=== PATIENT | female | born 1965 | race Caucasian/White ===

== ENCOUNTER 2017-12-12 22:59 | Emergency (ER) | payer OTHER ==
[2017-12-13 01:03] LABS: Urine Blood 1+ (NEG); Urine Glucose NEGATIVE (NEG); Urine Protein 1+ (NEG); Urine Specific Gravity 1.015 (1.005-1.030)
--- NOTE | 2017-12-13 01:31 | ER ---
Nurse's Notes [facility] Name: Fartun Pena Age: 52 yrs Sex: Female : 1965 Arrival Date: 12/12/2017 Time: 23:01 Bed 8 Private MD: Diagnosis: Constipation;Urinary tract infection, site not specified Presentation: 12/12 23:06 Presenting complaint: EMS states: SHE'S BEEN KIND OF CONSTIPATED FOR TWO WEEKS. AND SHE rv SAYS THAT SHE GOT BLACK MOLD POISONING WELL NUMEROUS FLEA AND MOSQUITO BITES. 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 Transition of care: patient was not received from another setting of care. Onset of symptoms is unknown. Risk Assessment: Do you want to hurt yourself or someone else? Patient reports no desire to harm self or others. Initial Sepsis Screen: Does the patient meet any 2 criteria? No. Patient's initial sepsis screen is negative. Does the patient have a suspected source of infection? No. Patient's initial sepsis screen is negative. Care prior to arrival: None. 23:06 Method Of Arrival: EMS: [facility] rv 23:06 Acuity: [place] 3 rv Historical: - Allergies: 23:06 Morphine; rv - Home Meds: 23:22 steroid [Active]; inhaler [Active]; rv - PMHx: 23:06 COPD; Depression; Hyperlipidemia; Hypertension; PTSD; Seizures; rv - PSHx: 23:22 right foot surgery; rv 23:23 reconstructed left foot; rv - Immunization history:: Adult Immunizations up to date. - Social history:: Smoking status: Patient uses tobacco products, unknown amount Patient/guardian denies using alcohol, street drugs. - Ebola Screening: : Patient negative for fever greater than or equal to 101.5 degrees Fahrenheit, and additional compatible Ebola Virus Disease symptoms Patient denies exposure to infectious person Patient denies travel to an Ebola-affected area in the 21 days before illness onset. Screenin:20 Abuse screen: Denies threats or abuse. Denies injuries from another. Nutritional rv screening: No deficits noted. Tuberculosis screening: No symptoms or risk factors identified. Fall Risk None identified. Assessment: 23:17 General: Appears in no apparent distress. uncomfortable, Behavior is anxious, crying, rv restless. Pain: Complains of pain in right foot and left foot. Neuro: Level of Consciousness is awake, alert, obeys commands, Oriented to person, place, time, situation. Cardiovascular: Heart tones S1 S2 present. Respiratory: Airway is patent. GI: Bowel sounds present X 4 quads. Abd is soft and non tender. : No signs and/or symptoms were reported regarding the genitourinary system. EENT: No signs and/or symptoms were reported regarding the EENT system. Derm: Skin is intact. 12/13 00:03 Reassessment: Patient appears in no apparent distress at this time. Patient and/or rv family updated on plan of care and expected duration. Pain level reassessed. Patient is alert, oriented x 3, equal unlabored respirations, skin warm/dry/pink. 02:02 Reassessment: Patient crying on discharge instructions, stating " I'm still in pain"; lp1 Provider notified. Vital Signs: 12/12 23:19 BP 102 / 77; Pulse 115; Resp 16; Pulse Ox 96% on R/A; rv 0702 00:03 BP 124 / 91; Pulse 111; Resp 16; Pulse Ox 97% on R/A; rv 01:17 BP 133 / 82; Pulse 100; Resp 16; Pulse Ox 100% on R/A; mt ED Course: 12/12 23:01 Patient arrived in ED. rv 23:08 Triage completed. rv 23:19 Gilmar Block PA is PHCP. jr8 23:19 Brett Reeder MD is Attending Physician. jr8 23:20 Arm band placed on right wrist. rv 23:23 Patient has correct armband on for positive identification. Placed in gown. Bed in low rv position. Call light in reach. Side rails up X 1. Pulse ox on. NIBP on. 12/13 00:27 Patient moved to radiology via wheelchair. kw 00:27 X-ray completed. Patient tolerated procedure well. kw 00:27 Patient moved back from radiology. kw 00:28 XRAY KUB In Process Unspecified. EDMS 01:26 Bertha Pandey, RN is Primary Nurse. lp1 02:01 No provider procedures requiring assistance completed. Patient did not have IV access lp1 during this emergency room visit. Administered Medications: 02:01 Drug: Nitrofurantoin 100 mg Route: PO; lp1 02:01 Follow up: Response: Medication administered at discharge. lp1 02:01 Drug: TORadol 60 mg Route: IM; Site: right deltoid; lp1 02:01 Follow up: Response: Medication administered at discharge. lp1 Outcome: 01:30 Discharge ordered by . tamara 02:02 Discharged to home ambulatory. lp1 02:02 Condition: good 02:02 Discharge instructions given to patient, Instructed on discharge instructions, follow up and referral plans. medication usage, Demonstrated understanding of instructions, follow-up care, medications, Prescriptions given X 2. 02:03 Patient left the ED. lp1 Addendum: 12/16/2017 17:21 Addendum: Culture Results: Positive urine culture. No further action required. Bacteria s s sensitive to prescribed antibiotic. Signatures: Dispatcher [employer] EDMS Clare Pham RN RN ss Whitley, Kimberlee kw Pena, Laura, RN RN lp1 Gilmar Block PA PA jr8 Thompson, Moriah mt Vicente, Ronaldo RN RN rv
--- NOTE | 2017-12-13 01:31 | EDPHYS ---
Physician Documentation [facility] Name: Fartun Pena Age: 52 yrs Sex: Female : 1965 Arrival Date: 12/12/2017 Time: 23:01 Bed 8 Private MD: ED Physician Brett Reeder HPI: 12/13 00:43 This 52 yrs old Female presents to ER via EMS with complaints of Constipation jr8 and dysuria. 00:43 Patient stated that she feels as if she has to have a bowel movement but cannot. Stated jr8 that she also has pain with urination. Patient goes on to say that she has auto immune disease and fleas that attack her. Stated that she has lesion that she can only see . Severity of symptoms: At their worst the symptoms were mild in the emergency department the symptoms are unchanged. It is unknown whether or not the patient has had similar symptoms in the past. It is unknown whether or not the patient has recently seen a physician. Historical: - Allergies: 12/12 23:06 Morphine; rv - Home Meds: 23:22 steroid [Active]; inhaler [Active]; rv - PMHx: 23:06 COPD; Depression; Hyperlipidemia; Hypertension; PTSD; Seizures; rv - PSHx: 23:22 right foot surgery; rv 23:23 reconstructed left foot; rv - Immunization history:: Adult Immunizations up to date. - Social history:: Smoking status: Patient uses tobacco products, unknown amount Patient/guardian denies using alcohol, street drugs. - Ebola Screening: : Patient negative for fever greater than or equal to 101.5 degrees Fahrenheit, and additional compatible Ebola Virus Disease symptoms Patient denies exposure to infectious person Patient denies travel to an Ebola-affected area in the 21 days before illness onset. ROS: 12/13 00:43 Eyes: Negative for injury, pain, redness, and discharge, ENT: Negative for injury, jr8 pain, and discharge, Neck: Negative for injury, pain, and swelling, Cardiovascular: Negative for chest pain, palpitations, and edema, Respiratory: Negative for shortness of breath, cough, wheezing, and pleuritic chest pain, Back: Negative for injury and pain, MS/Extremity: Negative for injury and deformity, Skin: Negative for injury, rash, and discoloration, Neuro: Negative for headache, weakness, numbness, tingling, and seizure. Abdomen/GI: Positive for constipation, Negative for abdominal pain, nausea, vomiting, and diarrhea, abdominal distension, anorexia, dysphagia, hematemesis, black/tarry stool, rectal pain, rectal bleeding, bowel incontinence, flatulence. : Positive for urinary symptoms, Negative for pelvic pain, flank pain, vaginal bleeding, vaginal discharge, vaginal itching. Exam: 00:43 Eyes: Pupils equal round and reactive to light, extra-ocular motions intact. Lids and jr8 lashes normal. Conjunctiva and sclera are non-icteric and not injected. Cornea within normal limits. Periorbital areas with no swelling, redness, or edema. ENT: Nares patent. No nasal discharge, no septal abnormalities noted. Tympanic membranes are normal and external auditory canals are clear. Oropharynx with no redness, swelling, or masses, exudates, or evidence of obstruction, uvula midline. Mucous membranes moist. Neck: Trachea midline, no thyromegaly or masses palpated, and no cervical lymphadenopathy. Supple, full range of motion without nuchal rigidity, or vertebral point tenderness. No Meningismus. Cardiovascular: Regular rate and rhythm with a normal S1 and S2. No gallops, murmurs, or rubs. Normal PMI, no JVD. No pulse deficits. Respiratory: Lungs have equal breath sounds bilaterally, clear to auscultation and percussion. No rales, rhonchi or wheezes noted. No increased work of breathing, no retractions or nasal flaring. Abdomen/GI: Soft, non-tender, with normal bowel sounds. No distension or tympany. No guarding or rebound. No evidence of tenderness throughout. Back: No spinal tenderness. No costovertebral tenderness. Full range of motion. Skin: Warm, dry with normal turgor. Normal color with no rashes, no lesions, and no evidence of cellulitis. MS/ Extremity: Pulses equal, no cyanosis. Neurovascular intact. Full, normal range of motion. Neuro: Awake and alert, GCS 15, oriented to person, place, time, and situation. Cranial nerves II-XII grossly intact. Motor strength 5/5 in all extremities. Sensory grossly intact. Cerebellar exam normal. Normal gait. 00:43 Constitutional: The patient appears alert, awake, anxious, restless. Vital Signs: 12/12 23:19 BP 102 / 77; Pulse 115; Resp 16; Pulse Ox 96% on R/A; rv 12/13 00:03 BP 124 / 91; Pulse 111; Resp 16; Pulse Ox 97% on R/A; rv 01:17 BP 133 / 82; Pulse 100; Resp 16; Pulse Ox 100% on R/A; mt MDM: 12/12 23:19 Patient medically screened. [facility] 12/13 01:29 Data reviewed: vital signs, nurses notes, lab test result(s), radiologic studies, plain jr films, and as a result, I will discharge patient. Data interpreted: Pulse oximetry: on room air is 100 %. Interpretation: normal. Counseling: I had a detailed discussion with the patient and/or guardian regarding: the historical points, exam findings, and any diagnostic results supporting the discharge/admit diagnosis, lab results, radiology results, the need for outpatient follow up, a family practitioner, to return to the emergency department if symptoms worsen or persist or if there are any questions or concerns that arise at home. 12/13 00:52 Order name: Urine Dipstick--Ancillary (enter results); Complete Time: 01:26 12/13 00:52 Order name: Urine --Ancillary (enter results); Complete Time: 01:26 12/13 00:08 Order name: XRAY KUB [facility] 12/13 01:26 Order name: Urine Microscopic Only [facility] 12/13 01:27 Order name: Urine Microscopic Only; Complete Time: 01:54 [facility] 12/13 01:50 Order name: Urine Culture [facility] 12/13 00:08 Order name: Urine Dipstick-Ancillary (obtain specimen); Complete Time: 00:52 [facility] Administered Medications: 02:01 Drug: Nitrofurantoin 100 mg Route: PO; lp1 02:01 Follow up: Response: Medication administered at discharge. lp1 02:01 Drug: TORadol 60 mg Route: IM; Site: right deltoid; lp1 02:01 Follow up: Response: Medication administered at discharge. lp1 Disposition: 08:50 Co-signature as Attending Physician, Brett Reeder MD I agree with the assessment and ebony plan of care. Disposition: 12/13/17 01:30 Discharged to Home. Impression: Constipation, Urinary tract infection, site not specified. - Condition is Stable. - Discharge Instructions: Constipation, Adult, Urinary Tract Infection. - Prescriptions for Macrobid 100 mg Oral Capsule - take 1 capsule by ORAL route every 12 hours for 7 days; 14 capsule. Miralax 17 gram/dose Oral - take 1 packet by ORAL route once daily dilute powder in 8 ounces of water or juice; 1 box. - Medication Reconciliation Form, Thank You Letter, Antibiotic Education, Prescription Opioid Use form. - Follow up: Private Physician; When: 2 - 3 days; Reason: Recheck today's complaints, Continuance of care, Re-evaluation by your physician. - Problem is new. - Symptoms have improved. Signatures: Dispatcher [employer] EDMS Brett Reeder MD MD cha Pena, Laura, RN RN lp1 Gilmar Block PA PA jr8 Trevon Ochoa, RN RN rv Corrections: (The following items were deleted from the chart) 02:03 01:30 12/13/2017 01:30 Discharged to Home. Impression: Constipation; Urinary tract lp1 infection, site not specified. Condition is Stable. Forms are Medication Reconciliation Form, Thank You Letter, Antibiotic Education, Prescription Opioid Use. Follow up: Private Physician; When: 2 - 3 days; Reason: Recheck today's complaints, Continuance of care, Re-evaluation by your physician. Problem is new. Symptoms have improved. jr8
[2017-12-13 01:49] LABS: Urine Bacteria LOADED /HPF (<20); Urine Culture Reflex Order REFLEXED
[2017-12-13] MEDS ORDERED: KETOROLAC 30 MG/ML INJ ONE (01:53)
[2017-12-13] MEDS ORDERED: NITROFURAN MACRO 100 MG CAP PO ONE (01:53)
[2017-12-13 02:09] VITALS: BP 133/82; O2SAT 100
--- NOTE | 2017-12-13 07:07 | RAD REPORT ---
EXAM DESCRIPTION: RAD - Abdomen 1 View (KUB) - 12/13/2017 12:29 am CLINICAL HISTORY: Abdominal pain, constipation COMPARISON: None. FINDINGS: Large stool volume is present filling but not dilating the entirety of the colon. No obstr uction, free air or pneumatosis. No suspicious calcifications. Mild bony degenerative change. IMPRESSION: Constipation pattern with no bowel obstruction, free air or emergent finding.
== END 2017-12-13 02:03 | disposition home or self-care (01) ==
LOC: ER 22:59
DX: N39.0 Urinary tract infection, site not specified (principal); K59.00 Constipation, unspecified; I10 Essential (primary) hypertension; J44.9 Chronic obstructive pulmonary disease, unspecified; F43.10 Post-traumatic stress disorder, unspecified; Z88.5 Allergy status to narcotic agent
CPT/HCPCS: 74018; 81003; 81015; 81025; 87077; 87086; 87088; 87186; 96372; 99284

== ENCOUNTER 2019-02-03 06:05 | Emergency (ER) | payer OTHER ==
--- OUTSIDE RECORDS SUMMARY | 2019-02-03 06:07 | XMS REPORT ---
:1965 [facility] Address [address] [place] [address] [address]. [address] [place] [id number] Care Team Providers Name Role Phone Unavailable Unavailable Unavailable Problems This patient has no known problems. Allergies, Adverse Reactions, Alerts This patient has no known allergies or adverse reactions. Medications This patient has no known medications.
[2019-02-03] MEDS ORDERED: ONDANSETRON 4 MG/2 ML VIAL ONE (06:32)
[2019-02-03] MEDS ORDERED: MORPHINE 4 MG/ML SYR ONE (06:32)
[2019-02-03 07:25] LABS: ALT/SGPT 29 U/L (12-78); AST/SGOT 31 U/L (15-37); Albumin 3.5 g/dL (3.4-5.0); Alkaline Phosphatase 71 U/L (45-117); BUN Blood Urea Nitrogen 18 mg/dL (7-18); Bicarbonate 24 mmol/L (21-32); Bilirubin Direct 0.1 mg/dL (0-0.2); Bilirubin Total 0.4 mg/dL (0.2-1.0); Glucose Level 104 mg/dL (74-106); Lipase 128 U/L (73-393); Potassium 3.7 mmol/L (3.5-5.1); Protein, Total 6.7 g/dL (6.4-8.2); Sodium Level 139 mmol/L (136-145)
[2019-02-03 07:39] LABS: Absolute Lymphocytes (CBC) 2.1 K/uL (0.7-4.9); Basophils % 0.5 % (0-1.3); Hematocrit 40.7 % (36.0-45.0); Lymphocytes % 39.1 % (15.3-44.8); MPV 7.7 fL (7.6-11.3); RBC Red Blood Cell Count 4.21 M/uL (3.86-4.86)
[2019-02-03 07:40] LABS: Protime INR 0.82
--- NOTE | 2019-02-03 08:07 | RAD REPORT ---
EXAM DESCRIPTION: CT - Abdomen Pelvis W Contrast - 02/03/2019 7:42 am CLINICAL HISTORY: Abdominal pain with diarrhea COMPARISON: February 2018 TECHNIQUE: Computed axial tomography of the abdomen pelvis was obtained. 100 cc Isovue-300 was admin istered intravenously. Oral contrast was not requested which limits evaluation of bowel. All CT scans are performed using dose optimization technique as appropriate and may include automated exposure control or mA/KV adjustment according to patient size. FINDINGS: The liver, spleen, pancreas, adrenal and kidneys appear unremarkable. There is no evidence of diverticulitis. Normal appendix. IMPRESSION: No acute abnormality is displayed.
[2019-02-03] MEDS ORDERED: metroNIDAZOLE 500 MG TABLET ONE (08:29)
[2019-02-03] MEDS ORDERED: CIPROFLOXACIN HCL 500 MG TAB ONE (08:30)
[2019-02-03] MEDS ORDERED: DICYCLOMINE HCL 10 MG CAP ONE (08:30)
--- NOTE | 2019-02-03 08:31 | EDPHYS ---
Physician Documentation [facility] Name: Fartun Pena Age: 54 yrs Sex: Female : 1965 Arrival Date: 02/03/2019 Time: 06:06 Bed 6 Private MD: ED Physician Waqar Sanz HPI: 02/03 06:23 This 54 yrs old Female presents to ER via Ambulatory with complaints of pm1 Rectal Bleeding. 06:23 The patient presents to the emergency department with bleeding from the rectum/anus. pm1 Onset: The symptoms/episode began/occurred 4 month(s) ago. Context: the patient has no known special context relating to the rectal area complaint(s). Modifying factors: The symptoms are alleviated by nothing, The symptoms are aggravated by nothing. Associate signs and symptoms: Pertinent positives: abdominal pain in the abdomen diffusely, mucous bowel movement with some blood, Pertinent negatives: fever, vomiting. The patient has not experienced similar symptoms in the past. Historical: - Allergies: 06:27 Morphine; tr5 - Home Meds: 06:27 inhaler [Active]; gabapentin oral oral [Active]; Hydroxyzine Oral [Active]; tr5 - PMHx: 06:27 COPD; Depression; Hyperlipidemia; Hypertension; PTSD; Seizures; tr5 - PSHx: 06:27 None; tr5 - Immunization history:: Adult Immunizations up to date. - Social history:: Smoking status: Patient uses tobacco products, smokes one pack cigarettes per day. - Ebola Screening: : No symptoms or risks identified at this time. ROS: 06:23 Constitutional: Negative for fever, chills, and weight loss, Eyes: Negative for injury, pm1 pain, redness, and discharge, ENT: Negative for injury, pain, and discharge, Neck: Negative for injury, pain, and swelling, Cardiovascular: Negative for chest pain, palpitations, and edema, Respiratory: Negative for shortness of breath, cough, wheezing, and pleuritic chest pain. 06:23 Back: Negative for injury and pain, : Negative for injury, bleeding, discharge, and swelling, MS/Extremity: Negative for injury and deformity, Skin: Negative for injury, rash, and discoloration, Neuro: Negative for headache, weakness, numbness, tingling, and seizure. 06:23 Abdomen/GI: Positive for abdominal pain, abdominal distension, rectal bleeding, Negative for nausea, vomiting, and diarrhea. Exam: 06:23 Constitutional: This is a well developed, well nourished patient who is awake, alert, pm1 and in no acute distress. Head/Face: Normocephalic, atraumatic. Eyes: Pupils equal round and reactive to light, extra-ocular motions intact. Lids and lashes normal. Conjunctiva and sclera are non-icteric and not injected. Cornea within normal limits. Periorbital areas with no swelling, redness, or edema. ENT: Nares patent. No nasal discharge, no septal abnormalities noted. Tympanic membranes are normal and external auditory canals are clear. Oropharynx with no redness, swelling, or masses, exudates, or evidence of obstruction, uvula midline. Mucous membranes moist. Neck: Trachea midline, no thyromegaly or masses palpated, and no cervical lymphadenopathy. Supple, full range of motion without nuchal rigidity, or vertebral point tenderness. No Meningismus. Chest/axilla: Normal chest wall appearance and motion. Nontender with no deformity. No lesions are appreciated. Cardiovascular: Regular rate and rhythm with a normal S1 and S2. No gallops, murmurs, or rubs. Normal PMI, no JVD. No pulse deficits. Respiratory: Lungs have equal breath sounds bilaterally, clear to auscultation and percussion. No rales, rhonchi or wheezes noted. No increased work of breathing, no retractions or nasal flaring. Abdomen/GI: Soft, non-tender, with normal bowel sounds. No distension or tympany. No guarding or rebound. No evidence of tenderness throughout. Back: No spinal tenderness. No costovertebral tenderness. Full range of motion. Skin: Warm, dry with normal turgor. Normal color with no rashes, no lesions, and no evidence of cellulitis. MS/ Extremity: Pulses equal, no cyanosis. Neurovascular intact. Full, normal range of motion. 08:00 Abdomen/GI: Rectal exam: is unremarkable, rectal tone normal, hemorrhoid(s), external, pm1 without bleeding, without inflammation, without thrombosis, without pain, 6 o'clock, mass, is not appreciated, swelling, is not appreciated, tenderness, is not appreciated, Gabbie LEDESMA present as biztalk architect. Vital Signs: 06:27 BP 138 / 92; Pulse 70; Resp 18; Temp 97.5(O); Pulse Ox 100% on R/A; Weight 52.16 kg; tr5 Height 5 ft. (152.40 cm); 07:00 BP 141 / 84; Pulse 56; Resp 16; Pulse Ox 97% ; sv 08:09 BP 123 / 68; Pulse 59; Resp 16; Pulse Ox 97% ; sv 08:30 BP 121 / 70; Pulse 55; Resp 16; Pulse Ox 99% ; sv 06:27 Body Mass Index 22.46 (52.16 kg, 152.40 cm) tr5 MDM: 06:18 Patient medically screened. pm1 08:15 Differential diagnosis: hemorrhoids, fissure, colitis, diverticulitis. pm1 08:23 Data reviewed: vital signs. Data interpreted: Pulse oximetry: on room air is 97 %. pm1 Interpretation: normal. Counseling: I had a detailed discussion with the patient and/or guardian regarding: the historical points, exam findings, and any diagnostic results supporting the discharge/admit diagnosis, lab results, radiology results, the need for outpatient follow up, a family practitioner, a air sampler, to return to the emergency department if symptoms worsen or persist or if there are any questions or concerns that arise at home. 02/03 06:23 Order name: Basic Metabolic Panel; Complete Time: 07:42 pm1 02/03 06:23 Order name: CBC with Diff; Complete Time: 07:42 pm1 02/03 06:23 Order name: Creatinine for Radiology; Complete Time: 07:42 pm1 02/03 06:23 Order name: Hepatic Function; Complete Time: 07:42 pm1 02/03 06:23 Order name: Lipase; Complete Time: 07:42 pm1 02/03 06:23 Order name: IV Saline Lock; Complete Time: 06:50 pm1 02/03 06:23 Order name: CT Abd/Pelvis - IV Contrast Only; Complete Time: 08:12 pm1 02/03 06:24 Order name: PT-INR; Complete Time: 07:53 pm1 02/03 06:23 Order name: Labs collected and sent; Complete Time: 06:50 pm1 02/03 07:02 Order name: Labs - recollect needed: Type \T\ Screen ONLY; Complete Time: 07:32 ss Administered Medications: 06:55 Drug: Zofran 4 mg Route: IVP; Site: right forearm; tr5 07:15 Follow up: Response: No adverse reaction sv 06:56 Not Given (Physician Discretion): morphine 4 mg IVP once; RASS on ADMIN: Combtv4, Very tr5 Agttd3, Agttd2, Rstlss1, AlertClm0, Drwsy-1, Lt Sdtn-2, Mod Sdtn-3, Dp Sdtn-4, UnArsble-5 08:39 Drug: Bentyl 20 mg Route: PO; sv 08:40 Follow up: Response: Medication administered at discharge. sv 08:40 Drug: Ciprofloxacin 500 mg Route: PO; sv 08:40 Follow up: Response: Medication administered at discharge. sv 08:40 Drug: metroNIDAZOLE 500 mg Route: PO; sv 08:40 Follow up: Response: Medication administered at discharge. sv Disposition: 02/03/19 08:29 Discharged to Home. Impression: Unspecified abdominal pain, Hematochezia. - Condition is Stable. - Discharge Instructions: Abdominal Pain, Adult, Rectal Bleeding. - Prescriptions for Bentyl 20 mg Oral Tablet - take 1 tablet by ORAL route every 6 hours As needed; 20 tablet. Flagyl 500 mg Oral Tablet - take 1 tablet by ORAL route every 8 hours for 10 days; 30 tablet. Cipro 500 mg Oral Tablet - take 1 tablet by ORAL route every 12 hours for 7 days; 14 tablet. Medrol (Nikhil) 4 mg Oral Tablets, Dose Pack - take 1 tablet by ORAL route as directed - follow package instructions; 1 packet. - Medication Reconciliation Form, Thank You Letter, Antibiotic Education, Prescription Opioid Use form. - Follow up: Emergency Department; When: As needed; Reason: Worsening of condition. Follow up: Private Physician; When: 2 - 3 days; Reason: Recheck today's complaints, Continuance of care, Re-evaluation by your physician. - Problem is new. - Symptoms have improved. Signatures: Dispatcher [employer] Gabbie Langston RN Clare Murdock RN RN Paul Mccrary, GRADE CHECKER GRADE CHECKER pm1 Presley Andino RN RN tr5 Corrections: (The following items were deleted from the chart) 08:31 08:29 02/03/2019 08:29 Discharged to Home. Impression: Unspecified abdominal pain. pm1 Condition is Stable. Forms are Medication Reconciliation Form, Thank You Letter, Antibiotic Education, Prescription Opioid Use. Follow up: Emergency Department; When: As needed; Reason: Worsening of condition. Follow up: Private Physician; When: 2 - 3 days; Reason: Recheck today's complaints, Continuance of care, Re-evaluation by your physician. Problem is new. Symptoms have improved. pm1 08:41 08:31 02/03/2019 08:29 Discharged to Home. Impression: Unspecified abdominal pain; sv Hematochezia. Condition is Stable. Forms are Medication Reconciliation Form, Thank You Letter, Antibiotic Education, Prescription Opioid Use. Follow up: Emergency Department; When: As needed; Reason: Worsening of condition. Follow up: Private Physician; When: 2 - 3 days; Reason: Recheck today's complaints, Continuance of care, Re-evaluation by your physician. Problem is new. Symptoms have improved. pm1
--- NOTE | 2019-02-03 08:31 | ER ---
Nurse's Notes [facility] Name: Fartun Pena Age: 54 yrs Sex: Female : 1965 Arrival Date: 02/03/2019 Time: 06:06 Bed 6 Private MD: Diagnosis: Unspecified abdominal pain;Hematochezia Presentation: 02/03 06:18 Presenting complaint: Presenting complaint: Patient states: "i couldn't sleep last tr5 night because i have been having severe abdominal cramps. I went to the bathroom and had 2 episodes of diarrhea and saw bright red clots and stringy black blood in my poop.". 06:22 Transition of care: patient was not received from another setting of care. Onset of tr5 symptoms was February 03, 2019. Risk Assessment: Do you want to hurt yourself or someone else? Patient reports no desire to harm self or others. Initial Sepsis Screen: Does the patient meet any 2 criteria? No. Patient's initial sepsis screen is negative. Does the patient have a suspected source of infection? No. Patient's initial sepsis screen is negative. Care prior to arrival: None. 06:22 Method Of Arrival: Ambulatory tr5 06:22 Acuity: [place] 3 tr5 Historical: - Allergies: 06:27 Morphine; tr5 - Home Meds: 06:27 inhaler [Active]; gabapentin oral oral [Active]; Hydroxyzine Oral [Active]; tr5 - PMHx: 06:27 COPD; Depression; Hyperlipidemia; Hypertension; PTSD; Seizures; tr5 - PSHx: 06:27 None; tr5 - Immunization history:: Adult Immunizations up to date. - Social history:: Smoking status: Patient uses tobacco products, smokes one pack cigarettes per day. - Ebola Screening: : No symptoms or risks identified at this time. Screenin:27 Abuse screen: Denies threats or abuse. Nutritional screening: No deficits noted. tr5 Tuberculosis screening: No symptoms or risk factors identified. Fall Risk None identified. Assessment: 06:27 General: Appears uncomfortable. Pain: Complains of pain in right lower quadrant and tr5 left lower quadrant Quality of pain is described as crampy. Neuro: Level of Consciousness is awake, alert, obeys commands, Oriented to person, place, time, situation, Learning Support Aide are equal bilaterally Moves all extremities. Cardiovascular: Heart tones present Capillary refill < 3 seconds Pulses are all present. Edema is absent. Respiratory: Airway is patent Respiratory effort is even, unlabored, Respiratory pattern is regular, symmetrical. GI: Reports lower abdominal pain, cramping, rectal bleeding, bloody stool. : No signs and/or symptoms were reported regarding the genitourinary system. EENT: No signs and/or symptoms were reported regarding the EENT system. Derm: Skin is intact, Skin is dry, Skin is normal, Skin temperature is warm. Musculoskeletal: Capillary refill < 3 seconds, Range of motion: intact in all extremities. 07:15 Reassessment: Patient appears in no apparent distress at this time. Patient and/or sv family updated on plan of care and expected duration. Pain level reassessed. Patient is alert, oriented x 3, equal unlabored respirations, skin warm/dry/pink. Patient states feeling better. Patient states symptoms have improved. 08:40 Reassessment: Patient appears in no apparent distress at this time. No changes from sv previously documented assessment. Patient and/or family updated on plan of care and expected duration. Pain level reassessed. Patient is alert, oriented x 3, equal unlabored respirations, skin warm/dry/pink. Vital Signs: 06:27 BP 138 / 92; Pulse 70; Resp 18; Temp 97.5(O); Pulse Ox 100% on R/A; Weight 52.16 kg; tr5 Height 5 ft. (152.40 cm); 07:00 BP 141 / 84; Pulse 56; Resp 16; Pulse Ox 97% ; sv 08:09 BP 123 / 68; Pulse 59; Resp 16; Pulse Ox 97% ; sv 08:30 BP 121 / 70; Pulse 55; Resp 16; Pulse Ox 99% ; sv 06:27 Body Mass Index 22.46 (52.16 kg, 152.40 cm) tr5 ED Course: 06:06 Patient arrived in ED. am2 06:12 Paul Woodall NP is PHCP. pm1 06:12 Waqar Sanz MD is Attending Physician. pm1 06:18 Presley Andino RN is Primary Nurse. tr5 06:24 Triage completed. tr5 06:27 Arm band placed on Patient placed. tr5 06:27 Placed in gown. Bed in low position. Call light in reach. Pulse ox on. NIBP on. tr5 06:40 Inserted saline lock: 22 gauge in right forearm, using aseptic technique. tr5 06:50 Initial lab(s) drawn, by me, sent to lab. tr5 07:24 IV discontinued, intact, bleeding controlled, to the R FA. sv 07:25 Lab(s) recollected, by me, sent to lab. T\\T\\S collected, blood band applied to patient. sv Inserted saline lock: 20 gauge in right antecubital area, using aseptic technique. Blood collected. Flushed right antecubital with 5 ml normal saline. 07:31 Primary Nurse role handed off by Presley Andino RN sv 07:31 Gabbie Mondragon, BALTAZAR is Primary Nurse. sv 07:43 CT Abd/Pelvis - IV Contrast Only In Process Unspecified. EDMS 07:[address] Patient moved back from CT. sv 07:51 IV discontinued, intact, bleeding controlled, IV infiltrated right after CT scan stated sv by Mai. 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 sv Administered Medications: 06:55 Drug: Zofran 4 mg Route: IVP; Site: right forearm; tr5 07:15 Follow up: Response: No adverse reaction sv 06:56 Not Given (Physician Discretion): morphine 4 mg IVP once; RASS on ADMIN: Combtv4, Very tr5 Agttd3, Agttd2, Rstlss1, AlertClm0, Drwsy-1, Lt Sdtn-2, Mod Sdtn-3, Dp Sdtn-4, UnArsble-5 08:39 Drug: Bentyl 20 mg Route: PO; sv 08:40 Follow up: Response: Medication administered at discharge. sv 08:40 Drug: Ciprofloxacin 500 mg Route: PO; sv 08:40 Follow up: Response: Medication administered at discharge. sv 08:40 Drug: metroNIDAZOLE 500 mg Route: PO; sv 08:40 Follow up: Response: Medication administered at discharge. sv Outcome: 08:29 Discharge ordered by . pm1 08:41 Patient left the ED. sv Signatures: Dispatcher [employer] EDMS Gabbie Mondragon, BALTAZAR RN sv Paul Woodall, QUILTING MACHINE OPERATOR QUILTING MACHINE OPERATOR pm1 Rosaura Hyatt am2 Presley Andino RN RN tr5 Corrections: (The following items were deleted from the chart) 06:24 06:18 Presenting complaint: tr5 tr5
[2019-02-03 08:51] VITALS: TEMP 97.5
[2019-02-03 08:55] VITALS: BP 121/70; O2SAT 99
== END 2019-02-03 08:41 | disposition home or self-care (01) ==
LOC: ER 06:05
DX: K92.1 Melena (principal); J44.9 Chronic obstructive pulmonary disease, unspecified
CPT/HCPCS: 85025; 80048; 36415; 85610; 80076; 83690; 74177; 96374; 99284; Q9967; J2405

== ENCOUNTER 2019-05-17 15:07 | Emergency (ER) | payer OTHER ==
--- OUTSIDE RECORDS SUMMARY | 2019-05-17 15:09 | XMS REPORT ---
:1965 [facility] Address [address] [place] [address] Dr. Baker [address] [place] [id number] Care Team Providers Name Role Phone Unavailable Unavailable Unavailable Problems This patient has no known problems. Allergies, Adverse Reactions, Alerts This patient has no known allergies or adverse reactions. Medications This patient has no known medications.
--- OUTSIDE RECORDS SUMMARY | 2019-05-17 15:09 | XMS REPORT | Summary of Care ---
:1965 Author Organization [facility] Address [address] [place] [address] Care Team Providers Name Role Phone Unknown, Attending Primary Care Provider Unavailable Encounter Details Date Type Department Care Team Description 03/02/2019 Orders Only [facility] Doctor Unassigned, No [address] [facility] [place] [address] [address] [place] [address] Allergies Active Allergy Reactions Severity Noted Date Comments Morphine Swelling 02/01/2015 Penicillins Nausea and/or Vomiting 02/01/2015 documented as of this encounter (statuses as of 03/02/2019) Medications Medication Sig Dispensed Refills Start Date End Date Status Asenapine (SAPHRIS) [address] 5 mg 0 Active SublIndications: PTSD under the (post-traumatic stress tongue. disorder) hydrOXYzine (ATARAX) 25 Take 25 mg by 0 Active mg tabletIndications: mouth 2 (two) PTSD (post-traumatic times daily. stress disorder) buPROPion SR (WELLBUTRIN Take 100 mg by 0 Active SR) 100 mg SR mouth daily. tabletIndications: PTSD (post-traumatic stress disorder) albuterol (VENTOLIN) 90 Inhale 2 Puffs 1 Inhaler 2 02/01/2015 Active mcg/actuation every 6 (six) inhalerIndications: COPD hours as needed (chronic obstructive for Wheezing or pulmonary disease) Shortness of Breath. budesonide-formoterol Inhale 2 Puffs 1 Inhaler 1 02/01/2015 Active (SYMBICORT) 160-4.5 daily. mcg/actuation inhalerIndications: COPD (chronic obstructive pulmonary disease) hydrochlorothiazide Take 1 Cap by 30 Cap 1 02/01/2015 Active (ESIDRIX) 12.5 mg mouth daily. capsuleIndications: Essential hypertension mometasone (NASONEX) 50 Use 1 [place] in 1 Bottle 1 02/01/2015 Active mcg/actuation nasal each nostril sprayIndications: daily. Allergic rhinitis, unspecified allergic rhinitis type simvastatin (ZOCOR) 10 mg Take 1 Tab by 30 Tab 1 02/01/2015 Active tabletIndications: mouth at Coronary artery disease bedtime. involving atka coronary artery without angina pectoris, Hyperlipidemia esomeprazole (NEXIUM) 20 Take 20 mg by 30 Cap 1 02/01/2015 Active mg capsuleIndications: mouth daily Gastroesophageal reflux before a meal. disease without esophagitis meloxicam (MOBIC) 15 mg Take 1 Tab by 60 Tab 0 06/04/2015 Active tabletIndications: mouth 2 (two) Osteoarthritis, times daily as unspecified needed for osteoarthritis type, Pain. unspecified site documented as of this encounter (statuses as of 03/02/2019) Active Problems Problem Noted Date COPD (chronic obstructive pulmonary disease) 02/01/2015 PTSD (post-traumatic stress disorder) 02/01/2015 Essential hypertension 02/01/2015 Gastroesophageal reflux disease without esophagitis 02/01/2015 Coronary artery disease involving atka coronary artery without angina 2014 pectoris Hyperlipidemia 02/01/2015 documented as of this encounter (statuses as of 03/02/2019) Immunizations Name Administration Dates Next Due Pneumococcal Polysaccharide, PPSV23 (PNEUMOVAX) 02/01/2015 Tdap 02/01/2015 documented as of this encounter Social History Tobacco Use Types Packs/Day Years Used Date Current Every Day Smoker 1 35 Alcohol Use Drinks/Week oz/Week Comments No 0 Standard drinks or equivalent 0.0 Sober since Jul 08, 2014 Sex Assigned at Date Recorded Not on file Job Start Date Occupation Industry Not on file Not on file Not on file Travel History Travel Start Travel End No recent travel history available. documented as of this encounter Last Filed Vital Signs Not on filedocumented in this encounter Plan of Treatment Date Type Specialty Care Team Description 03/02/2019 Office Visit Rheumatology Destin Locke MD [address] [place] [address] [id number] [place] [address] [phone] Arrived Will Campa MD [address] [place] [id number] [phone] Health Maintenance Due Date Last Done Comments HEPATITIS C (HCV) SCREEN 1965 PAP SMEAR 1986 MAMMOGRAM 2005 COLONOSCOPY 2015 Zoster Recombinant Vaccine (SHINGRIX) (1 of 2) 2015 INFLUENZA VACCINE (#1) 2019 DTaP,Tdap,and Td Vaccines (2 - Td) 02/01/2025 02/01/2015 PNEUMOCOCCAL 0-64 YEARS COMBINED SERIES Completed 02/01/2015 documented as of this encounter Procedures Procedure Name Priority Date/Time Associated Diagnosis Comments ASSIGNMENT OF BENEFITS Routine 03/02/2019 8:54 AM CDT documented in this encounter Results Not on filedocumented in this encounter Insurance Payer Benefit Plan / Subscriber ID Effective Dates Phone Address Type Group [facility] xxxxxxxxx 2016-[facility] Medicaid COMM PLAN - PLUS t MANAGED MEDICAID documented as of this encounter
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
--- OUTSIDE RECORDS SUMMARY | 2019-05-17 15:10 | XMS REPORT | Summary of Care ---
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 Allergic rhinitis, unspecified allergic rhinitis type simvastatin (ZOCOR) 10 mg Take 1 Tab by 30 Tab 1 02/01/2015 Active tabletIndications: mouth at Coronary artery disease bedtime. involving [place] coronary artery without angina pectoris, Hyperlipidemia esomeprazole [...] without esophagitis 02/01/2015 Coronary artery disease involving [place] coronary artery without angina 2014 pectoris Hyperlipidemia [...] filedocumented in this encounter Plan of Treatment Health Maintenance Due Date Last Done Comments HEPATITIS C (HCV) SCREEN 1965 PAP SMEAR 1986 MAMMOGRAM 2005 COLONOSCOPY 2015 Zoster Recombinant Vaccine (SHINGRIX) (1 of 2) 2015 INFLUENZA VACCINE (#1) 2019 DTaP,Tdap,and Td Vaccines (2 - Td) 02/01/2025 02/01/2015 PNEUMOCOCCAL 0-64 YEARS COMBINED SERIES Completed 02/01/2015 documented as of this encounter Results Not on filedocumented in this encounter Visit Diagnoses Diagnosis Polyarthralgia Pain in joint, multiple sites documented in this encounter Insurance Payer Benefit Plan / Subscriber ID Effective Dates Phone Address Type Group [facility] x[facility] 2016-[place] Medicaid COMM PLAN - PLUS t MANAGED MEDICAID documented as of this encounter
--- OUTSIDE RECORDS SUMMARY | 2019-05-17 15:10 | XMS REPORT | Summary of Care ---
:1965 Author Organization [facility] Address [address] [place] [address] Care Team Providers Name Role Phone Unknown, Attending Primary Care Provider Unavailable Reason for Visit Reason Comments New Patient (Routine) Status Reason Specialty Diagnoses / Procedures Referred By Referred To Contact Contact Closed Rheumatology Diagnoses Pain, unspecified Ramirez, Reenu, Procedures CONSULT/REFERRAL RHEUMATOLOGY [place] [address] [place] [address] Encounter Details Date Type Department Care Team Description 03/02/2019 Office Visit [facility] Destin Locke MD [address] [place], [place] [id number] [place] [address] Polyarthralgia (Primary Dx); Internal Medicine Will Campa MD [address] [place] [address]. [place] [address] Generalized osteoarthritis; [facility]; ton Chronic bronchitis, unspecified chronic bronchitis type; Primary Care PVD (peripheral vascular disease); [facility]; [address], History of drug use; [address] [place] [address] Allergies Active Allergy Reactions Severity [...] Essential hypertension mometasone (NASONEX) 50 Use 1 [place] in 1 Bottle 1 02/01/2015 Active mcg/actuation nasal each nostril sprayIndications: daily. Allergic rhinitis, unspecified allergic rhinitis type simvastatin (ZOCOR) 10 mg Take 1 Tab by 30 Tab 1 02/01/2015 Active tabletIndications: mouth at Coronary artery disease bedtime. involving [place] coronary artery without angina pectoris, Hyperlipidemia esomeprazole [...] without esophagitis 02/01/2015 Coronary artery disease involving [place] coronary artery without angina 2014 pectoris Hyperlipidemia [...] a 54 year old white female from [facility],a new patient. She is here because of [...] controlling her blood pressure, with diet? Her [facility] labs are old from 2003 and 2015: [...] new Non-[facility] (Outside) consultation visit, requested by [facility], [place], [place], for evaluation for positive autoimmune workup HPI: Fartun Pena is a 54 year old /White female with past medical history of COPD, Anxiety, PTSD with major depression denies SI, listed below, presenting to clinic today, for requestedby Dr. Luis A Niño [facility], [place], [place], for evaluation for positive autoimmune workup.(no [...] past 2 yrs (unintentional) says Works at [employer]. And walks a lot Positive symptoms as [...] more details Social history: lives at [address] Smoking : 1 ppd x 30 [...] (NASONEX) 50 mcg/actuation nasal spray Use 1 [place] in each nostril daily. 1 Bottle 1 [...] today, for requested by Luis A Reyes [facility],[place], [place], for evaluation for positive autoimmune workup.(no [...] Fellow- Year 1 03/02/2019 9:05 AM Pager: [phone] documented in this encounter Plan of Treatment [...] Routine 03/02/2019 10:06 Polyarthralgia Results for this (97074) AM CDT procedure are in the results [...] RIGHT Performing Organization Address City/State/Zipcode Phone Number [facility] CLIA: [id number], [address] [place] [address] [facility] GLYCOSYLATED HEMOGLOBIN (A1C) (03/02/2019 10:06 AM CDT) HGB A1C 5.5 4.0 - 6.0 % [facility] Specimen Blood - ARM, RIGHT Performing Organization Address City/[facility] Phone Number [facility] CLIA: [id number], [address] [place] [address] [phone] [facility] HCV ANTIBODY (03/02/2019 10:06 AM CDT) HCV Ab NEGATIVE [facility] HCV Semi-Quantitative 0.02 [facility] Specimen Blood - ARM, RIGHT Performing Organization Address [facility] Phone Number [facility] CLIA: [id number], [address] [place] [phone] [facility] RHEUMATOID FACTOR (03/02/2019 10:06 AM CDT) RF <20 <20 IU/mL [facility] Specimen Blood - ARM, RIGHT Performing Organization Address [facility] Phone Number [facility] CLIA: [id number], [address] [place] [address] [facility] URINALYSIS (03/02/2019 10:06 AM CDT) APPEARANCE Hazy (A) Clear [facility] COLOR Yellow Yellow [facility] PH 5.0 4.8 - 8.0 [facility] SP GRAVITY 1.016 1.003 - 1.030 [facility] GLU U QUAL Normal Normal [facility] BLOOD Negative Negative [facility] KETONES Negative Negative [facility] PROTEIN Negative Negative [facility] UROBILIN Normal Normal [facility] BILIRUBIN Negative Negative [facility] NITRITE Negative Negative [facility] [place] Negative Negative [facility] RBC/HPF 1 0 - 3 HPF [facility] WBC/HPF <1 0 - 5 HPF [facility] BACTERIA Few (A) Negative [facility] MUCOUS Slight (A) Negative LPF [facility] SQ EPITH 4 (H) <=2 HPF [facility] YEAST BUD 1 <=1 HPF [facility] Specimen Urine - URINE, CLEAN CATCH Performing Organization Address [facility] Phone Number [facility] CLIA: [id number], [address] [place] [phone] [facility] THYROID STIMULATING HORMONE (03/02/2019 10:06 AM CDT) TSH 1.18 0.45 - 4.70 mIU/L [facility] Specimen Blood - ARM, RIGHT Performing Organization Address City/[facility] Phone Number [facility] CLIA: [id number], [address] [place] [address] [facility] C-REACTIVE PROTEIN (03/02/2019 10:06 AM CDT) CRP 0.3 <0.8 mg/dL [facility] Specimen Blood - ARM, RIGHT Performing Organization Address [facility] Phone Number [facility] CLIA: [id number], [address] [place] [address] [phone] [facility] COMP. METABOLIC PANEL (59062) (03/02/2019 10:06 AM CDT) NA 140 135 - 145 [facility] mmol/L SERVICES K 5.1 (H) 3.5 - 5.0 [facility] mmol/L SERVICES CL 105 98 - 108 mmol/L [facility] CO2 TOTAL 27 23 - 31 mmol/L [facility] AGAP 8 2 - 16 [facility] BUN 13 7 - 23 mg/dL [facility] GLUCOSE 101 70 - 110 mg/dL [facility] CREATININE 0.53 0.50 - 1.04 [facility] mg/dL SERVICES TOTAL BILI 0.5 0.1 - 1.1 mg/dL [facility] CALCIUM 9.8 8.6 - 10.6 [facility] mg/dL SERVICES T PROTEIN 7.5 6.3 - 8.2 g/dL [facility] ALBUMIN 4.5 3.5 - 5.0 g/dL [facility] ALK PHOS 61 34 - 122 U/L [facility] ALT(SGPT) 36 9 - 51 U/L [facility] AST(SGOT) 36 13 - 40 U/L [facility] eGFR Calculation 120.2 mL/min/1.73m2 [facility] (Non- SERVICES Finnish) eGFR Calculation 145.7 mL/min/1.73m2 [facility] () SERVICES Specimen Blood - ARM, RIGHT Narrative Performed At Association of Glomerular Filtration Rate (GFR) and Staging [facility] of Kidney Disease* + + [...] tests). Performing Organization Address City/State/Zipcode Phone Number [facility] CLIA: [id number], [address] [place] [address] [facility] documented in this encounter Visit Diagnoses [...] ID Effective Dates Phone Address Type Group [facility] xxxxxxxxx 2016-[employer] Medicaid COMM PLAN - PLUS t MANAGED MEDICAID documented as of this encounter
[2019-05-17 16:11] LABS: Urine Blood NEGATIVE (NEG); Urine Glucose NEGATIVE (NEG); Urine Protein NEGATIVE (NEG); Urine Specific Gravity <1.005 (1.005-1.030)
[2019-05-17 16:13] LABS: Absolute Lymphocytes (CBC) 2.3 K/uL (0.7-4.9); Basophils % 0.4 % (0-1.3); Hematocrit 43.9 % (36.0-45.0); Lymphocytes % 31.3 % (15.3-44.8); MPV 7.9 fL (7.6-11.3)
[2019-05-17] MEDS ORDERED: PROMETHAZINE 25 MG/ML VIAL ONE (16:23)
[2019-05-17] MEDS ORDERED: NA CHLORIDE 0.9% 1,000 ML ONE (16:24)
[2019-05-17] MEDS ORDERED: FENTANYL CITR 100 MCG/2 ML ONE (16:24)
[2019-05-17 16:32] LABS: ALT/SGPT 25 U/L (12-78); AST/SGOT 14 U/L (15-37); Albumin 3.7 g/dL (3.4-5.0); Alkaline Phosphatase 68 U/L (45-117); BUN Blood Urea Nitrogen 12 mg/dL (7-18); Bicarbonate 28 mmol/L (21-32); Bilirubin Direct < 0.1 mg/dL (0-0.2); Bilirubin Total 0.3 mg/dL (0.2-1.0); Glucose Level 131 mg/dL (74-106); Lipase 211 U/L (73-393); Potassium 3.7 mmol/L (3.5-5.1); Protein, Total 7.4 g/dL (6.4-8.2); Sodium Level 140 mmol/L (136-145)
--- NOTE | 2019-05-17 17:05 | RAD REPORT ---
EXAM DESCRIPTION: CTAbdomen Pelvis W Contrast - 05/17/2019 4:53 pm CLINICAL HISTORY: Abdominal pain. ABD PAIN COMPARISON: <Comparisons> TECHNIQUE: Biphasic CT imaging of the abdomen and pelvis was performed with 100 ml non-ionic IV cont rast. All CT scans are performed using dose optimization technique as appropriate and may include automated exposure control or mA/KV adjustment according to patient size. FINDINGS: The lung bases are clear. The liver, spleen, pancreas, adrenal glands and kidneys are within normal limits. No bowel obstruction, free air, free fluid or abscess. The appendix is normal. No evidence of signi ficant lymphadenopathy. No suspicious bony findings. IMPRESSION: No acute intra-abdominal or pelvic finding.
--- NOTE | 2019-05-17 17:31 | ER ---
Nurse's Notes [facility] Name: Fartun Pena Age: 54 yrs Sex: Female : 1965 Arrival Date: 05/17/2019 Time: 15:09 Bed 16 Private MD: Diagnosis: Other abdominal pain;Nausea Presentation: 05/17 15:15 Presenting complaint: N/V and left sided abdominal pain x 3 days. Denies fever. Hx of hb colitis. Transition of care: patient was not received from another setting of care. Onset of symptoms was May 14, 2019. Risk Assessment: Do you want to hurt yourself or someone else? Patient reports no desire to harm self or others. Initial Sepsis Screen: Does the patient meet any 2 criteria? No. Patient's initial sepsis screen is negative. Does the patient have a suspected source of infection? No. Patient's initial sepsis screen is negative. Care prior to arrival: None. 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 - Social history:: Smoking status: Patient uses tobacco products, smokes one pack cigarettes per day. - Ebola Screening: : No symptoms or risks identified at this time. Screenin:24 Abuse screen: Denies threats or abuse. Denies injuries from another. Nutritional ph screening: No deficits noted. Tuberculosis screening: No symptoms or risk factors identified. Fall Risk None identified. Assessment: 15:45 General: Appears in no apparent distress. uncomfortable, Behavior is cooperative, ph appropriate for age, anxious. Pain: Complains of pain in left lower quadrant. Neuro: Level of Consciousness is awake, alert, obeys commands, Oriented to person, place, time, situation. Cardiovascular: Capillary refill < 3 seconds in bilateral fingers Patient's skin is warm and dry. Respiratory: Airway is patent Respiratory effort is even, unlabored, Respiratory pattern is regular, symmetrical. GI: Abdomen is round non-distended, Bowel sounds present X 4 quads. Abd is soft X 4 quads Abdomen is tender to palpation in posterior aspect of left lateral abdomen, anterior aspect of left lateral abdomen and left lower quadrant. : Reports pain in left flank(s), Denies burning with urination, inability to void, urinary frequency. Derm: Skin is intact, Skin is pink, warm \T\ dry. Musculoskeletal: Circulation, motion, and sensation intact. Range of motion: intact in all extremities. 17:14 Reassessment: Patient appears in no apparent distress at this time. Patient and/or ph family updated on plan of care and expected duration. Pain level reassessed. Patient is alert, oriented x 3, equal unlabored respirations, skin warm/dry/pink. Pt c/o nausea and reports that pain has increased to 8/10, ERP notified. Vital Signs: 15:16 BP 114 / 79; Pulse 78; Resp 16; Temp 98.1; Pulse Ox 97% on R/A; Weight 53.07 kg; Height hb 5 ft. (152.40 cm); Pain 9/10; 16:30 BP 118 / 89; Pulse 75; Resp 16; Pulse Ox 97% on R/A; ph 17:26 BP 115 / 75; Pulse 76; Resp 18; Pulse Ox 99% on R/A; ph 18:00 Temp 97.9; ph 15:16 Body Mass Index 22.85 (53.07 kg, 152.40 cm) hb ED Course: 15:09 Patient arrived in ED. mr 15:16 Triage completed. hb 15:16 Arm band placed on. hb 15:21 Sharon Bolaños FNP-C is PHCP. snw 15:21 Edwar Ramesh MD is Attending Physician. snw 15:26 Alyse King, BALTAZAR is Primary Nurse. ph 15:40 Urine collected: clean catch specimen, clear. dh3 15:45 Initial lab(s) drawn, by me, sent to lab. Inserted saline lock: 22 gauge in left dh3 antecubital area, using aseptic technique. Blood collected. 16:13 Radiology exam delayed due to lab results not completed at this time. (BUN/Creatinine). nj 16:53 CT Abd/Pelvis - IV Contrast Only In Process Unspecified. EDMS 17:30 Patient has correct armband on for positive identification. Bed in low position. Call ph light in reach. Side rails up X 1. Pulse ox on. NIBP on. Sitter at bedside. Door closed. Noise minimized. Warm blanket given. 18:08 No provider procedures requiring assistance completed. IV discontinued, intact, ph bleeding controlled, No redness/swelling at site. Administered Medications: 16:30 Drug: NS 0.9% 1000 ml Route: IV; Rate: 125 ml/hr; Site: left antecubital; ph 18:05 Follow up: Response: No adverse reaction; IV Status: Completed infusion ph 16:35 Drug: Phenergan 12.5 mg Route: IVP; Site: left antecubital; ph 17:00 Follow up: Response: No adverse reaction; Nausea is decreased ph 16:37 Drug: fentaNYL (PF) 25 mcg Route: IVP; Site: left antecubital; ph 17:00 Follow up: Response: No adverse reaction; Pain is decreased; RASS: Alert and Calm (0) ph Outcome: 17:30 Discharge ordered by . larisa 18:08 Patient left the ED. ss 18:08 Discharged to home ambulatory. ph 18:08 Condition: good 18:08 Discharge instructions given to patient, Instructed on discharge instructions, follow up and referral plans. medication usage, Demonstrated understanding of instructions, follow-up care, medications, Prescriptions given X 1. Signatures: Dispatcher [employer] EDIN Sharon Bolaños, MIRIAN-C MONOTYPIST-Farhad Marleni Virk Clare Camilo, BALTAZAR RN Alyse King RN RN Evelia Kat, BALTA[place]AR LEDESMA Micheal Wynn, Ana Maria [facility]
--- NOTE | 2019-05-17 17:31 | EDPHYS ---
Physician Documentation [facility] Name: Fartun Pena Age: 54 yrs Sex: Female : 1965 Arrival Date: 05/17/2019 Time: 15:09 Bed 16 Private MD: ED Physician Edwar Ramesh HPI: 05/17 16:19 This 54 yrs old Female presents to ER via Ambulatory with complaints of snw Abdominal Pain, Shortness Of Breath. 16:19 The patient presents with abdominal pain in the left upper quadrant, in the left lower snw quadrant. Onset: The symptoms/episode began/occurred gradually, 3 day(s) ago, and became worse today, and became persistent. The symptoms do not radiate. Associated signs and symptoms: Pertinent positives: nausea and vomiting. The symptoms are described as constant. Severity of pain: At its worst the pain was moderate severe. The patient has experienced similar episodes in the past. It is unknown whether or not the patient has recently seen a physician. dx colitis three months ago. 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 - Social history:: Smoking status: Patient uses tobacco products, smokes one pack cigarettes per day. - Ebola Screening: : No symptoms or risks identified at this time. ROS: 16:18 Constitutional: Negative for fever, chills, and weight loss, Eyes: Negative for injury, snw pain, redness, and discharge, ENT: Negative for injury, pain, and discharge, Neck: Negative for injury, pain, and swelling, Cardiovascular: Negative for chest pain, palpitations, and edema, Respiratory: Negative for shortness of breath, cough, wheezing, and pleuritic chest pain, Back: Negative for injury and pain, : Negative for injury, bleeding, discharge, and swelling, MS/Extremity: Negative for injury and deformity, Skin: Negative for injury, rash, and discoloration, Neuro: Negative for headache, weakness, numbness, tingling, and seizure. 16:18 Abdomen/GI: Positive for abdominal pain, anorexia, of the left upper quadrant and left lower quadrant. Exam: 16:17 Head/Face: Normocephalic, atraumatic. Eyes: Pupils equal round and reactive to light, snw extra-ocular motions intact. Lids and lashes normal. Conjunctiva and sclera are non-icteric and not injected. Cornea within normal limits. Periorbital areas with no swelling, redness, or edema. ENT: Nares patent. No nasal discharge, no septal abnormalities noted. Tympanic membranes are normal and external auditory canals are clear. Oropharynx with no redness, swelling, or masses, exudates, or evidence of obstruction, uvula midline. Mucous membranes moist. Neck: Trachea midline, no thyromegaly or masses palpated, and no cervical lymphadenopathy. Supple, full range of motion without nuchal rigidity, or vertebral point tenderness. No Meningismus. Chest/axilla: Normal chest wall appearance and motion. Nontender with no deformity. No lesions are appreciated. Cardiovascular: Regular rate and rhythm with a normal S1 and S2. No gallops, murmurs, or rubs. Normal PMI, no JVD. No pulse deficits. Respiratory: Lungs have equal breath sounds bilaterally, clear to auscultation and percussion. No rales, rhonchi or wheezes noted. No increased work of breathing, no retractions or nasal flaring. Back: No spinal tenderness. No costovertebral tenderness. Full range of motion. Skin: Warm, dry with normal turgor. Normal color with no rashes, no lesions, and no evidence of cellulitis. MS/ Extremity: Pulses equal, no cyanosis. Neurovascular intact. Full, normal range of motion. Neuro: Awake and alert, GCS 15, oriented to person, place, time, and situation. Cranial nerves II-XII grossly intact. Motor strength 5/5 in all extremities. Sensory grossly intact. Cerebellar exam normal. Normal gait. Psych: Awake, alert, with orientation to person, place and time. Behavior, mood, and affect are within normal limits. 16:17 Constitutional: The patient appears alert, frail, Older than stated age 16:17 Abdomen/GI: Inspection: abdomen appears normal, Bowel sounds: normal, in the left upper quadrant and left lower quadrant, Palpation: moderate abdominal tenderness, in the left upper quadrant and left lower quadrant. Vital Signs: 15:16 BP 114 / 79; Pulse 78; Resp 16; Temp 98.1; Pulse Ox 97% on R/A; Weight 53.07 kg; Height hb 5 ft. (152.40 cm); Pain 9/10; 16:30 BP 118 / 89; Pulse 75; Resp 16; Pulse Ox 97% on R/A; ph 17:26 BP 115 / 75; Pulse 76; Resp 18; Pulse Ox 99% on R/A; ph 18:00 Temp 97.9; ph 15:16 Body Mass Index 22.85 (53.07 kg, 152.40 cm) hb MDM: 15:22 Patient medically screened. snw 17:31 Data reviewed: vital signs, nurses notes. Data interpreted: Pulse oximetry: on room air snw is 99 %. Interpretation: normal. Counseling: I had a detailed discussion with the patient and/or guardian regarding: the historical points, exam findings, and any diagnostic results supporting the discharge/admit diagnosis, lab results, the need for outpatient follow up, to return to the emergency department if symptoms worsen or persist or if there are any questions or concerns that arise at home. Special discussion: Based on the patient's Hx, exam, and Dx evaluation, there is no indication for emergent surgery or inpatient Tx. It is understood by the patient/guardian that if the Sx's persist or worsen they need to return immediately for re-evaluation. Based on the history and exam findings, there is no indication for further emergent testing or inpatient evaluation. I discussed with the patient/guardian the need to see the primary care provider for further evaluation of the symptoms. 05/17 15:23 Order name: Basic Metabolic Panel; Complete Time: 16:49 snw 05/17 15:23 Order name: CBC with Diff; Complete Time: 16:17 snw 05/17 15:23 Order name: Creatinine for Radiology; Complete Time: 16:49 snw 05/17 15:23 Order name: Hepatic Function; Complete Time: 16:49 snw 05/17 15:23 Order name: Lipase; Complete Time: 16:49 snw 05/17 15:57 Order name: Urine Dipstick--Ancillary (enter results); Complete Time: 16:17 bd 12 15:23 Order name: IV Saline Lock; Complete Time: 16:45 snw 05/17 15:23 Order name: Labs collected and sent; Complete Time: 16:45 snw 05/17 15:23 Order name: NPO; Complete Time: 16:45 snw 05/17 15:41 Order name: CT Abd/Pelvis - IV Contrast Only; Complete Time: 17:10 snw Administered Medications: 16:30 Drug: NS 0.9% 1000 ml Route: IV; Rate: 125 ml/hr; Site: left antecubital; ph 18:05 Follow up: Response: No adverse reaction; IV Status: Completed infusion ph 16:35 Drug: Phenergan 12.5 mg Route: IVP; Site: left antecubital; ph 17:00 Follow up: Response: No adverse reaction; Nausea is decreased ph 16:37 Drug: fentaNYL (PF) 25 mcg Route: IVP; Site: left antecubital; ph 17:00 Follow up: Response: No adverse reaction; Pain is decreased; RASS: Alert and Calm (0) ph Disposition: 19:06 Co-signature as Attending Physician, Edwar Ramesh MD Signing chart for administrative ps1 purposes. Available for consultation in ED. . Disposition: 05/17/19 17:30 Discharged to Home. Impression: Other abdominal pain, Nausea. - Condition is Stable. - Discharge Instructions: Abdominal Pain, Adult, Clear Liquid Diet, Adult, Nausea and Vomiting, Adult, Rehydration, Adult, Garza Diet. - Prescriptions for promethazine 25 mg Oral Tablet - take 1 tablet by ORAL route every 6 hours As needed; 20 tablet. - Medication Reconciliation Form, Thank You Letter, Antibiotic Education, Prescription Opioid Use form. - Follow up: Private Physician; When: 1 - 2 days; Reason: Recheck today's complaints, Continuance of care, Re-evaluation by your physician. Follow up: Emergency Department; When: As needed; Reason: Worsening of condition. Signatures: Dispatcher [employer] EDMS Sharon Bolaños, IVET SYSTEMS ACCOUNTANT-Csnw Clare Pham RN RN Alyse King RN RN Evelia Kat RN RN hb Singer, Phillip, MD MD ps1 Corrections: (The following items were deleted from the chart) 18:08 17:30 05/17/2019 17:30 Discharged to Home. Impression: Other abdominal pain; Nausea. ss Condition is Stable. Forms are Medication Reconciliation Form, Thank You Letter, Antibiotic Education, Prescription Opioid Use. Follow up: Private Physician; When: 1 - 2 days; Reason: Recheck today's complaints, Continuance of care, Re-evaluation by your physician. Follow up: Emergency Department; When: As needed; Reason: Worsening of condition. snw
[2019-05-17 20:13] VITALS: TEMP 98.1
[2019-05-17 20:16] VITALS: BP 115/75; O2SAT 99
== END 2019-05-17 18:08 | disposition home or self-care (01) ==
LOC: ER 15:07
DX: R11.0 Nausea (principal); F17.210 Nicotine dependence, cigarettes, uncomplicated; I10 Essential (primary) hypertension; F32.9 Major depressive disorder, single episode, unspecified; J44.9 Chronic obstructive pulmonary disease, unspecified; Z88.0 Allergy status to penicillin; Z88.5 Allergy status to narcotic agent
CPT/HCPCS: 96361; 85025; 80048; 36415; 80076; 81003; 83690; 74177; 96375; 96374; 99285; Q9967; J2550; J3010; J7030

== ENCOUNTER 2019-08-28 15:53 | Emergency (ER) | payer OTHER ==
--- OUTSIDE RECORDS SUMMARY | 2019-08-28 15:56 | XMS REPORT ---
:1965 [facility] Address [address] [place] [address] Dr. Baker [address] [place] [id number] Care Team Providers Name Role Phone Unavailable Unavailable Unavailable Problems This patient has no known problems. Allergies, Adverse Reactions, Alerts This patient has no known allergies or adverse reactions. Medications This patient has no known medications.
[2019-08-28] MEDS ORDERED: METHYLPREDNISOLONE 125 MG INJ ONE (16:11)
[2019-08-28] MEDS ORDERED: LEVALBUTEROL 1.25 MG/3 ML NEB ONE (16:12)
[2019-08-28 16:35] LABS: Absolute Lymphocytes (CBC) 1.6 K/uL (0.7-4.9); Basophils % 0.4 % (0-1.3); Hematocrit 37.4 % (36.0-45.0); Lymphocytes % 41.2 % (15.3-44.8); MPV 7.6 fL (7.6-11.3)
--- NOTE | 2019-08-28 16:46 | RAD REPORT ---
EXAM DESCRIPTION: RAD - Chest Single View - 08/28/2019 4:33 pm CLINICAL HISTORY: Cough;COPD COMPARISON: February 2018 TECHNIQUE: AP portable chest image was obtained 08/28/2019 4:33 pm . FINDINGS: Lungs are clear. Heart and vasculature are normal. No measurable pleural effusion and no p neumothorax. No acute bony abnormality seen. No acute aortic findings suspected. IMPRESSION: No acute cardiopulmonary process.
[2019-08-28 17:00] LABS: BUN Blood Urea Nitrogen 8 mg/dL (7-18); Bicarbonate 25 mmol/L (21-32); Glucose Level 94 mg/dL (74-106); NT PRO-BNP 269 pg/mL (<125); Potassium 3.8 mmol/L (3.5-5.1); Sodium Level 139 mmol/L (136-145)
--- NOTE | 2019-08-28 17:25 | EDPHYS ---
Physician Documentation [facility] Name: Fartun Pena Age: 54 yrs Sex: Female : 1965 Arrival Date: 08/28/2019 Time: 15:59 Bed 7 Private MD: ED Physician Cristian Mcfarlane HPI: 08/27 16:04 This 54 yrs old Female presents to ER via EMS with complaints of Painful rn Cough, Shortness Of Breath. 16:04 The patient or guardian reports cough, difficulty breathing. Onset: The rn symptoms/episode began/occurred 1 week(s) ago. Severity of symptoms: At their worst the symptoms were moderate, in the emergency department the symptoms are unchanged. Modifying factors: The symptoms are alleviated by nothing, the symptoms are aggravated by nothing. The patient has experienced similar episodes in the past. Reports went to [employer] last Wednesday, then a few days later began to feel sick, + productive cough, + fever, no travel, no known exposure to COVID-19. + COPD. . Historical: - Allergies: 16:03 Morphine; hb 16:03 PENICILLINS; hb - Home Meds: 16:03 amitriptyline 25 mg Oral tab 1 tab once daily [Active]; lisinopril 10 mg Oral tab 1 tab hb once daily [Active]; - PMHx: 16:03 COPD; Depression; Hyperlipidemia; Hypertension; PTSD; Seizures; hb 16:03 Ulcerative Colitis; hb - PSHx: 16:03 Tubal ligation; ; hb - Immunization history:: Adult Immunizations up to date. - Social history:: Smoking status: Patient reports the use of cigarette tobacco products, smokes one pack cigarettes per day. - Family history:: not pertinent. - Hospitalizations: : No recent hospitalization is reported. ROS: 16:04 Constitutional: + fever Eyes: Negative for injury, pain, redness, and discharge, ENT: rn Negative for injury, pain, and discharge, Cardiovascular: Negative for palpitations, and edema, Respiratory: + cough and sob Abdomen/GI: Negative for abdominal pain, nausea, vomiting, diarrhea, and constipation, MS/Extremity: Negative for injury and deformity, Skin: Negative for injury, rash, and discoloration, Neuro: Negative for numbness, tingling, and seizure. Exam: 16:04 Constitutional: This is a well developed, well nourished patient who is awake, alert rn Head/Face: Normocephalic, atraumatic. ENT: NO stridor Cardiovascular: Regular rate and rhythm. No pulse deficits. Respiratory: Faint exp wheezing bilaterally, no retractions Skin: Warm, dry MS/ Extremity: Pulses equal, no cyanosis. Neuro: Awake and alert, GCS 15 17:09 ECG was reviewed by the Attending Physician. rn Vital Signs: 16:00 BP 155 / 109; Pulse 70; Resp 19; Temp 99.7; Pulse Ox 96% on R/A; Weight 52.16 kg; hb Height 5 ft. (152.40 cm); Pain 8/10; 16:00 Body Mass Index 22.46 (52.16 kg, 152.40 cm) hb MDM: 15:59 Patient medically screened. rn 17:20 Differential Diagnosis: Bronchitis Influenza Upper Respiratory Infection Viral Syndrome rn Pneumonia. Data reviewed: vital signs, nurses notes, lab test result(s), radiologic studies, plain films, and as a result, I will discharge patient. Counseling: I had a detailed discussion with the patient and/or guardian regarding: the historical points, exam findings, and any diagnostic results supporting the discharge/admit diagnosis, lab results, radiology results, the need for outpatient follow up, to return to the emergency department if symptoms worsen or persist or if there are any questions or concerns that arise at home. Response to treatment: the patient's symptoms have mildly improved after treatment, and as a result, I will discharge patient. Special discussion: I discussed with the patient/guardian in detail that at this point there is no indication for admission to the hospital. It is understood, however, that if the symptoms persist or worsen the patient needs to return immediately for re-evaluation. ED course: Pt improved, no oxygen requirement, neg cxr, neg flu, neg procalcitonin, will dc home as bronchitis/COPD exacerbation. . 17:24 ED course: Will dc home with steroids, inhaler, and abx given COPD and relatively rn immunodeficient with reported IBD and rheumatoid arthritis. . 08/27 16:00 Order name: Blood Culture Adult (2) rn 08/27 16:00 Order name: BMP; Complete Time: 17:04 rn 08/27 16:00 Order name: CBC with Diff; Complete Time: 17:04 rn 08/27 16:00 Order name: NT PRO-BNP; Complete Time: 17:04 rn 08/27 16:01 Order name: Flu; Complete Time: 17:04 rn 08/27 16:01 Order name: Procalcitonin; Complete Time: 17:16 rn 08/27 16:00 Order name: XRAY CXR (1 view); Complete Time: 17:04 rn 08/27 16:00 Order name: EKG; Complete Time: 16:02 rn 08/27 16:00 Order name: Cardiac monitoring; Complete Time: 16:28 rn 08/27 16:00 Order name: EKG - Nurse/Tech; Complete Time: 16:54 rn 08/27 16:00 Order name: IV Saline Lock; Complete Time: 16:25 rn 08/27 16:00 Order name: Labs collected and sent; Complete Time: 16:25 rn 08/27 16:00 Order name: O2 Per Protocol; Complete Time: 16:25 rn 08/27 16:00 Order name: O2 Sat Monitoring; Complete Time: 16:25 rn EC:09 Rate is 72 beats/min. Rhythm is regular. QRS [place] is Normal. GA interval is normal. QRS rn interval is normal. QT interval is normal. No Q waves. T waves are Normal. No ST changes noted. Clinical impression: Normal ECG. Interpreted by me. Reviewed by me. Administered Medications: 16:15 Drug: Xopenex (3) 1.25 mg Route: Inhalation; bp 17:14 Follow up: Response: No adverse reaction hb 16:24 Drug: SOLU-Medrol 125 mg Route: IVP; Site: right forearm; bp 17:00 Follow up: Response: No adverse reaction hb 18:09 Drug: Zithromax 500 mg Route: PO; hb Disposition: 08/28/19 17:24 Discharged to Home. Impression: Chronic obstructive pulmonary disease with acute lower respiratory infection. - Condition is Stable. - Discharge Instructions: Acute Bronchitis, Adult, Chronic Obstructive Pulmonary Disease Exacerbation. - Prescriptions for Prednisone 20 mg Oral Tablet - take 3 tablet by ORAL route once daily for 5 days; 15 tablet. Zithromax Z- Nikhil 250 mg Oral Tablet - take 1 tablet by ORAL route as directed for 5 days Day 1 - take two (2) tablets one time. Day 2, 3, 4 , 5 take one (1) tablet once daily.; 6 tablet. Albuterol Sulfate 90 mcg/actuation - inhale 1-2 puff by INHALATION route every 4-6 hours; 1 Inhaler. Diclofenac Sodium 75 mg Oral Tablet, Delayed Release (E.C.) - take 1 tablet by ORAL route 2 times per day; 20 tablet. - Medication Reconciliation Form, Thank You Letter, Antibiotic Education, Prescription Opioid Use form. - Follow up: Private Physician; When: As needed; Reason: Recheck today's complaints, Re-evaluation by your physician. - Problem is new. - Symptoms have improved. Signatures: Dispatcher [employer] EDMS Cristian Mcfarlane MD MD rn Baxter, Heather, RN RN Tyrese Kinsey RN RN bp Corrections: (The following items were deleted from the chart) 18:09 17:24 08/28/2019 17:24 Discharged to Home. Impression: Chronic obstructive pulmonary hb disease with acute lower respiratory infection. Condition is Stable. Forms are Medication Reconciliation Form, Thank You Letter, Antibiotic Education, Prescription Opioid Use. Follow up: Private Physician; When: As needed; Reason: Recheck today's complaints, Re-evaluation by your physician. Problem is new. Symptoms have improved. rn
--- NOTE | 2019-08-28 17:25 | ER ---
Nurse's Notes [facility] Name: Fartun Pena Age: 54 yrs Sex: Female : 1965 Arrival Date: 08/28/2019 Time: 15:59 Bed 7 Private MD: Diagnosis: Chronic obstructive pulmonary disease with acute lower respiratory infection Presentation: 08/27 16:00 Chief complaint: EMS states: Productive cough with white sputum, pain with cough, SOB, hb and low grade fever x 2-3 days. Pt was at [employer] last Wednesday, concerned about exposure. Coronavirus screen: The patient has NOT traveled to a country currently being monitored by the CDC within the last 14 days. The patient has NOT had contact with any known and/or suspected case of coronavirus. Proceed with normal triage procedures. Ebola Screen: No symptoms or risks identified at this time. Initial Sepsis Screen: Does the patient meet any 2 criteria? No. Patient's initial sepsis screen is negative. Does the patient have a suspected source of infection? No. Patient's initial sepsis screen is negative. Risk Assessment: Do you want to hurt yourself or someone else? Patient reports no desire to harm self or others. 16:00 Method Of Arrival: EMS: [facility] 16:00 Acuity: [place] 3 hb Triage Assessment: 16:02 General: Appears in no apparent distress. ill, Behavior is calm, cooperative. Pain: hb Pain currently is 8 out of 10 on a pain scale. EENT: No signs and/or symptoms were reported regarding the EENT system. Neuro: Level of Consciousness is awake, alert, obeys commands, Oriented to person, place, time, situation. Cardiovascular: Heart tones S1 S2 present Capillary refill < 3 seconds Patient's skin is warm and dry. Respiratory: Reports shortness of breath at rest pain with cough Airway is patent Respiratory effort is even, unlabored, Respiratory pattern is regular, symmetrical, Breath sounds are clear bilaterally. Onset: The symptoms/episode began/occurred yesterday, the patient has moderate shortness of breath. GI: No signs and/or symptoms were reported involving the gastrointestinal system. : No signs and/or symptoms were reported regarding the genitourinary system. Derm: Skin is pink, warm \T\ dry. Musculoskeletal: No signs and/or symptoms reported regarding the musculoskeletal system. Historical: - Allergies: 16:03 Morphine; hb 16:03 PENICILLINS; hb - Home Meds: 16:03 amitriptyline 25 mg Oral tab 1 tab once daily [Active]; lisinopril 10 mg Oral tab 1 tab hb once daily [Active]; - PMHx: 16:03 COPD; Depression; Hyperlipidemia; Hypertension; PTSD; Seizures; hb 16:03 Ulcerative Colitis; hb - PSHx: 16:03 Tubal ligation; ; hb - Immunization history:: Adult Immunizations up to date. - Social history:: Smoking status: Patient reports the use of cigarette tobacco products, smokes one pack cigarettes per day. - Family history:: not pertinent. - Hospitalizations: : No recent hospitalization is reported. Screenin:03 Abuse screen: Denies threats or abuse. Denies injuries from another. Nutritional hb screening: No deficits noted. Tuberculosis screening: No symptoms or risk factors identified. Fall Risk None identified. Assessment: 16:15 General: SEE TRIAGE. hb 17:15 Reassessment: Patient appears in no apparent distress at this time. Patient and/or hb family updated on plan of care and expected duration. Pain level reassessed. Patient is alert, oriented x 3, equal unlabored respirations, skin warm/dry/pink. Vital Signs: 16:00 BP 155 / 109; Pulse 70; Resp 19; Temp 99.7; Pulse Ox 96% on R/A; Weight 52.16 kg; hb Height 5 ft. (152.40 cm); Pain 8/10; 16:00 Body Mass Index 22.46 (52.16 kg, 152.40 cm) ED Course: 15:59 Patient arrived in ED. rn 15:59 Cristian Mcfarlane MD is Attending Physician. rn 16:00 Evelia Kat, BALTAZAR is Primary Nurse. hb 16:02 Triage completed. hb 16:03 Arm band placed on. hb 16:15 Inserted saline lock: 20 gauge in right forearm, using aseptic technique. Blood bp collected. 16:34 XRAY CXR (1 view) In Process Unspecified. EDMS 16:54 EKG done, by ED staff, reviewed by Cristian Mcfarlane MD. em1 Administered Medications: 16:15 Drug: Xopenex (3) 1.25 mg Route: Inhalation; bp 17:14 Follow up: Response: No adverse reaction hb 16:24 Drug: SOLU-Medrol 125 mg Route: IVP; Site: right forearm; bp 17:00 Follow up: Response: No adverse reaction hb 18:09 Drug: Zithromax 500 mg Route: PO; hb Outcome: 17:24 Discharge ordered by . baltazar 18:09 Patient left the ED. hb Signatures: Dispatcher [employer] EDCristian Hayden MD MD rn Martinez, Eric 1 Evelia Kat RN RN Tyrese Kinsey RN RN bp
[2019-08-28] MEDS ORDERED: AZITHROMYCIN 250 MG TAB ONE (17:48)
[2019-08-28 18:18] VITALS: BP 155/109; TEMP 99.7; O2SAT 96
--- NOTE | 2019-08-28 21:50 | EKG ---
Test Date: 2019-08-28 Test Time: 16:52:57 Case Work Aide: BENITO MEASUREMENT RESULTS: Intervals: Rate: 72 [place]: 126 QRSD: 76 QT: 414 QTc: 453 [place]: P: 60 [place]: 126 QRS: 71 T: 65 INTERPRETIVE STATEMENTS: Normal sinus rhythm Normal ECG Compared to ECG 09/09/2015 10:27:27 No significant changes Electronically Signed On 08-28-19 21:49:46 CDT by Ted Garcia
== END 2019-08-28 18:09 | disposition home or self-care (01) ==
LOC: ER 15:53
DX: J44.0 Chronic obstructive pulmonary disease with (acute) lower respiratory infection (principal); J44.1 Chronic obstructive pulmonary disease with (acute) exacerbation; F17.210 Nicotine dependence, cigarettes, uncomplicated; I10 Essential (primary) hypertension; G40.909 Epilepsy, unspecified, not intractable, without status epilepticus; Z88.0 Allergy status to penicillin; Z88.5 Allergy status to narcotic agent
CPT/HCPCS: 93005; 87040 ×2; 85025; 80048; 36415; 84145; 83880; 87804 ×2; 71045; 96374; 99284; J2930

== ENCOUNTER 2019-11-25 08:57 | Emergency (ER) | payer OTHER ==
--- OUTSIDE RECORDS SUMMARY | 2019-11-25 09:00 | XMS REPORT | Continuity of Care Document ---
:1965 Author Organization [facility] t Address [address] [place] [address] Dr. E[address] [place] [address] Care Team Providers Name Role Phone Katheryn ZHAO Attending Clinician Problems This patient has no known problems. Allergies, Adverse Reactions, Alerts This patient has no known allergies or adverse reactions. Medications This patient has no known medications. Procedures This patient has no known procedures. Encounters Start End Encounter Admission Attending Care Care Encounter Source Date/Time Date/Time Type Type Clinicians Facility Department ID 2019-03-02 2019-03-02 Office TALITA Campa [id number] 08:54:19 10:05:43 Visit Will [facility] [id number] [facility] [id number] [place] [id number] Results This patient has no known results.
--- NOTE | 2019-11-25 09:24 | ER ---
Nurse's Notes [facility] Name: Fartun Pena Age: 54 yrs Sex: Female : 1965 Arrival Date: 11/25/2019 Time: 08:59 Bed 7 Private MD: Diagnosis: Puncture wound without foreign body, left foot Presentation: 11/24 09:06 Chief complaint: Patient states: [place] beach [place] 0800 and she rb1 stepped on a nail, left foot. No bleeding noted. Coronavirus screen: Ebola Screen: Patient negative for fever greater than or equal to 101.5 degrees Fahrenheit, and additional compatible Ebola Virus Disease symptoms. Initial Sepsis Screen: Does the patient meet any 2 criteria? No. Patient's initial sepsis screen is negative. Does the patient have a suspected source of infection? Yes: Skin breakdown/wound. Risk Assessment: Do you want to hurt yourself or someone else? Patient reports no desire to harm self or others. Onset of symptoms was November 25, 2019 at 08:00. 09:06 Method Of Arrival: Wheelchair rb1 09:06 Acuity: YASMANY 3 rb1 Triage Assessment: 09:06 General: Appears in no apparent distress. comfortable, Behavior is calm, cooperative. rb1 Pain: Complains of pain in left foot Pain currently is 6 out of 10 on a pain scale. Pain began 0800 this morning. Neuro: Level of Consciousness is awake, alert, obeys commands, Oriented to person, place, time, situation. Cardiovascular: Capillary refill < 3 seconds. Respiratory: Airway is patent Respiratory effort is even, unlabored, Respiratory pattern is regular, symmetrical. GI: No signs and/or symptoms were reported involving the gastrointestinal system. : No signs and/or symptoms were reported regarding the genitourinary system. Derm: Wound noted left foot Wound is Stepped on a nail. Musculoskeletal: Range of motion: intact in all extremities, Swelling present in left foot. Injury Description: Puncture sustained to left foot is through the skin, depth is unknown was sustained 1-2 hours ago. 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 - Social history:: Smoking status: Patient reports the use of cigarette tobacco products, smokes one pack cigarettes per day. Screenin:06 Abuse screen: Denies threats or abuse. Nutritional screening: No deficits noted. rb1 Tuberculosis screening: No symptoms or risk factors identified. Fall Risk None identified. Assessment: 09:06 General: See triage assessment. rb1 09:25 Reassessment: Discharge pending, awaiting wound care by provider. rb1 09:35 Reassessment: Dr. Reeder is at the bedside providing wound care. rb1 Vital Signs: 09:06 BP 111 / 87; Pulse 66; Resp 17; Temp 97.6(TE); Pulse Ox 99% on R/A; Weight 52.16 kg; rb1 Height 5 ft. 0 in. (152.40 cm); Pain 6/10; 09:06 Body Mass Index 22.46 (52.16 kg, 152.40 cm) rb1 ED Course: 08:59 Patient arrived in ED. ag5 09:03 Brett Reeder MD is Attending Physician. ebony 09:05 Diane Murrell, RN is Primary Nurse. rb1 09:06 Arm band placed on right wrist. rb1 09:06 Patient has correct armband on for positive identification. Bed in low position. Call rb1 light in reach. Side rails up X 1. Pulse ox on. NIBP on. 09:20 Triage completed. rb1 09:23 Polo Alexis MD is Referral Physician. ebony 09:40 Foot Left 3 View XRAY In Process Unspecified. EDMS 09:56 No provider procedures requiring assistance completed. Patient did not have IV access rb1 during this emergency room visit. Administered Medications: 09:33 Drug: LevOfloxacin 500 mg Route: PO; rb1 09:52 Follow up: Response: No adverse reaction rb1 09:33 Drug: Tetanus-Diphtheria Toxoid Adult 0.5 ml {It Support Consultant: Trufa. Exp: rb1 07/28/2021. Lot #: [id number]. } Route: IM; Site: left deltoid; 09:56 Follow up: Response: No adverse reaction rb1 Outcome: 09:23 Discharge ordered by MD. beck 09:56 Patient left the ED. rb1 09:56 Discharged to home via wheelchair. rb1 09:56 Condition: stable 09:56 Discharge instructions given to patient, Instructed on discharge instructions, follow up and referral plans. medication usage, Demonstrated understanding of instructions, follow-up care, medications, Prescriptions given X 2. Signatures: Dispatcher [employer] EDBrett Tripathi MD MD cha Barber, Rebecca, RN RN rb1 Tashia Thayer ag5
--- NOTE | 2019-11-25 09:24 | EDPHYS ---
Physician Documentation [facility] Name: Fartun Pena Age: 54 yrs Sex: Female : 1965 Arrival Date: 11/25/2019 Time: 08:59 Bed 7 Private MD: MITCH Physician Brett Reeder HPI: 11/24 09:18 This 54 yrs old Female presents to ER via Unassigned with complaints of Foot ebony Injury, Puncture Wound To Foot. 09:18 The patient presents with a puncture wound, from a nail. The complaints affect the left ebony foot, left foot. Context: [place] beach[place] resulted from the patient stepping on a nail. Onset: The symptoms/episode began/occurred just prior to arrival. Modifying factors: The symptoms are alleviated by elevation of extremity, the symptoms are aggravated by weight bearing, movement, wearing shoes. Associated signs and symptoms: The patient has no apparent associated signs or symptoms. Severity of symptoms: At their worst the symptoms were mild, in the emergency department the symptoms are unchanged. The patient has not experienced similar symptoms in the past. 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 - Social history:: Smoking status: Patient reports the use of cigarette tobacco products, smokes one pack cigarettes per day. ROS: 09:19 MS/extremity: Positive for pain, puncture. ebony 09:19 Constitutional: Negative for fever, chills, and weight loss, Eyes: Negative for injury, pain, redness, and discharge, ENT: Negative for injury, pain, and discharge, Neck: Negative for injury, pain, and swelling, Cardiovascular: Negative for chest pain, palpitations, and edema, Respiratory: Negative for shortness of breath, cough, wheezing, and pleuritic chest pain, Abdomen/GI: Negative for abdominal pain, nausea, vomiting, diarrhea, and constipation, Back: Negative for injury and pain, : Negative for injury, bleeding, discharge, and swelling, Skin: Negative for injury, rash, and discoloration, Neuro: Negative for headache, weakness, numbness, tingling, and seizure, Psych: Negative for depression, anxiety, suicide ideation, homicidal ideation, and hallucinations, Allergy/Immunology: Negative for hives, rash, and allergies, Endocrine: Negative for neck swelling, polydipsia, polyuria, polyphagia, and marked weight changes, Hematologic/Lymphatic: Negative for swollen nodes, abnormal bleeding, and unusual bruising. 09:19 MS/extremity: Positive for pain, puncture, tenderness, of the arch of left foot. Exam: 09:19 Constitutional: This is a well developed, well nourished patient who is awake, alert, ebony and in no acute distress. Head/Face: Normocephalic, atraumatic. Eyes: Pupils equal round and reactive to light, extra-ocular motions intact. Lids and lashes normal. Conjunctiva and sclera are non-icteric and not injected. Cornea within normal limits. Periorbital areas with no swelling, redness, or edema. ENT: Nares patent. No nasal discharge, no septal abnormalities noted. Tympanic membranes are normal and external auditory canals are clear. Oropharynx with no redness, swelling, or masses, exudates, or evidence of obstruction, uvula midline. Mucous membranes moist. Neck: Trachea midline, no thyromegaly or masses palpated, and no cervical lymphadenopathy. Supple, full range of motion without nuchal rigidity, or vertebral point tenderness. No Meningismus. Chest/axilla: Normal chest wall appearance and motion. Nontender with no deformity. No lesions are appreciated. Cardiovascular: Regular rate and rhythm with a normal S1 and S2. No gallops, murmurs, or rubs. Normal PMI, no JVD. No pulse deficits. Respiratory: Lungs have equal breath sounds bilaterally, clear to auscultation and percussion. No rales, rhonchi or wheezes noted. No increased work of breathing, no retractions or nasal flaring. Abdomen/GI: Soft, non-tender, with normal bowel sounds. No distension or tympany. No guarding or rebound. No evidence of tenderness throughout. Back: No spinal tenderness. No costovertebral tenderness. Full range of motion. Skin: Warm, dry with normal turgor. Normal color with no rashes, no lesions, and no evidence of cellulitis. Neuro: Awake and alert, GCS 15, oriented to person, place, time, and situation. Cranial nerves II-XII grossly intact. Motor strength 5/5 in all extremities. Sensory grossly intact. Cerebellar exam normal. Normal gait. Psych: Awake, alert, with orientation to person, place and time. Behavior, mood, and affect are within normal limits. 09:19 Musculoskeletal/extremity: Extremities: ROM: intact in all extremities, Circulation is intact in all extremities. Sensation intact. Compartment Syndrome exam of affected extremity: is normal. Weight bearing: able to fully bear weight. Vital Signs: 09:06 BP 111 / 87; Pulse 66; Resp 17; Temp 97.6(TE); Pulse Ox 99% on R/A; Weight 52.16 kg; rb1 Height 5 ft. 0 in. (152.40 cm); Pain 6/10; 09:06 Body Mass Index 22.46 (52.16 kg, 152.40 cm) [facility] Procedures: 09:21 I \T\ D: Incision and drainage was performed for an abscess of the left Prepped with [facility] Betadine, Anesthetized with nothing. Dressing: non-Adherent dressing, the patient tolerated the procedure well, prepped and minimally unroofed. MDM: 09:12 Patient medically screened. [facility] 11/24 09:17 Order name: Foot Left 3 View XRAY [facility] 11/24 09:17 Order name: Dressing - Wound; Complete Time: 09:33 [facility] 11/24 09:17 Order name: Gloves, Sterile; Complete Time: 09:33 [facility] 11/24 09:17 Order name: Setup Suture Tray; Complete Time: 09:33 [facility] Administered Medications: 09:33 Drug: LevOfloxacin 500 mg Route: PO; rb1 09:52 Follow up: Response: No adverse reaction [facility] 09:33 Drug: Tetanus-Diphtheria Toxoid Adult 0.5 ml {Rivet Hole Machine Operator: Circle. Exp: rb1 07/28/2021. Lot #: [id number]. } Route: IM; Site: left deltoid; 09:56 Follow up: Response: No adverse reaction [facility] Disposition: 11/25/19 09:23 Discharged to Home. Impression: Puncture wound without foreign body, left foot. - Condition is Stable. - Discharge Instructions: Puncture Wound, Puncture Wound, [id number]. - Prescriptions for Levaquin 750 mg Oral Tablet - take 1 tablet by ORAL route once daily for 6 days; 6 tablet. Motrin IB 200 mg Oral Tablet - take 2 tablet by ORAL route every 6 hours As needed as needed with food; 30 tablet. - Medication Reconciliation Form, Thank You Letter, Antibiotic Education, Prescription Opioid Use form. - Follow up: Private Physician; When: 2 - 3 days; Reason: Recheck today's complaints, Continuance of care, Re-evaluation by your physician. Follow up: Polo Alexis MD; When: 2 - 3 days; Reason: Recheck today's complaints, Re-evaluation by your physician. - Problem is new. - Symptoms have improved. Signatures: Dispatcher [employer] EDBrett Tripathi MD MD cha Barber, Rebecca, RN RN rb1 Corrections: (The following items were deleted from the chart) 09:56 09:23 11/25/2019 09:23 Discharged to Home. Impression: Puncture wound without foreign rb1 body, left foot. Condition is Stable. Forms are Medication Reconciliation Form, Thank You Letter, Antibiotic Education, Prescription Opioid Use. Follow up: Private Physician; When: 2 - 3 days; Reason: Recheck today's complaints, Continuance of care, Re-evaluation by your physician. Follow up: Polo Alexis; When: 2 - 3 days; Reason: Recheck today's complaints, Re-evaluation by your physician. Problem is new. Symptoms have improved. ebony
[2019-11-25] MEDS ORDERED: levoFLOXacin 500 MG TAB ONE (09:38)
[2019-11-25] MEDS ORDERED: TETANUS & DIPHTHERIA TOX,ADULT 0.5 ML VIAL ONE (09:38)
[2019-11-25 10:07] VITALS: BP 111/87; TEMP 97.6; O2SAT 99
--- NOTE | 2019-11-25 11:00 | RAD REPORT ---
EXAM DESCRIPTION: RAD - Foot Left 3 View - 11/25/2019 9:40 am CLINICAL HISTORY: Left Foot pain FINDINGS: A pin has been placed into the second metatarsal. The proximal aspect of the can lies at o utside of the bone. Small metallic anchors present within the second proximal phalanx. The patient stepped on a nail with the plantar aspect of the junction of the mid to hindfoot. No radi opaque foreign body seen. No fracture or dislocation. Soft tissue swelling is present
== END 2019-11-25 09:56 | disposition home or self-care (01) ==
LOC: ER 08:57
PROC: 0J9R0ZZ Drainage of Left Foot Subcutaneous Tissue and Fascia, Open Approach (ICD-10-PCS; principal; 2019-11-25)
DX: S91.332A Puncture wound without foreign body, left foot, initial encounter (principal); W45.0XXA Nail entering through skin, initial encounter; Y93.H9 Activity, other involving exterior property and land maintenance, building and construction; Y92.832 Beach as the place of occurrence of the external cause; F17.210 Nicotine dependence, cigarettes, uncomplicated; Z88.0 Allergy status to penicillin; Z88.6 Allergy status to analgesic agent; I10 Essential (primary) hypertension; F32.9 Major depressive disorder, single episode, unspecified
CPT/HCPCS: 90471; 90714; 99284